=== PATIENT | female | born 1950 | race Caucasian/White ===

== ENCOUNTER 2021-06-02 22:03 | Emergency (ER) | payer MEDICARE, MEDICAID ==
[~2021-06-02] VITALS: Ht 162.6 cm; Wt 60.0 kg
[2021-06-03 03:02] VITALS: BP 128/87
== END 2021-06-03 03:03 | disposition home or self-care (01) ==
LOC: ER 22:03
DX: Z04.89 Encounter for examination and observation for other specified reasons (principal); Z59.00 Homelessness unspecified
CPT/HCPCS: 99283